=== PATIENT | male | born 2005 | race Caucasian/White ===

== ENCOUNTER 2024-06-21 11:40 | Inpatient (IN) | payer MEDICAID ==
[~2024-06-21] VITALS: Ht 185.4 cm; Wt 134.3 kg
[~2024-06-21 11:40] MED LIST: NOCURR
[2024-06-21] MEDS ORDERED: LEVE-71 PO (12:05)
[2024-06-21] MEDS ORDERED: ARIP10TA38 PO (12:05)
[2024-06-21] MEDS ORDERED: HALO2ORA11 PO (12:05)
[2024-06-21] MEDS ORDERED: OLAN10TA74 PO (12:05)
[2024-06-21] MEDS ORDERED: FLUO-418 PO (12:05)
[2024-06-21] MEDS ORDERED: ZOLPIDEM TARTRATE 10 MG TABLET PO PRN (22:00)
[2024-06-21] MEDS ORDERED: LORazepam 1 MG TABLET PO PRN (22:00)
[2024-06-21 23:14] VITALS: BP 135/86; PULSE 82; RESP 16; TEMP 98.2; O2SAT 98
[2024-06-22 07:59] LABS: BASOPHILS % (AUTO) 0.7 % (0.0-2.0); EOSINOPHILS % (AUTO) 2.6 % (1.0-6.0); HEMATOCRIT 43.8 % (41-53); HEMOGLOBIN 14.5 g/dL (13.5-17.5); LYMPHOCYTES # (AUTO) 2.5 K/uL (1.0-4.8); LYMPHOCYTES % (AUTO) 38.6 % (22.0-44.0); MEAN CORPUSCULAR HEMOGLOBIN 28.6 pg (26.0-34.0); MEAN CORPUSCULAR HGB CONC 33.1 G/dL (31.0-37.0); MEAN CORPUSCULAR VOLUME 87 fL (80-100); MONOCYTES # (AUTO) 0.5 K/uL (0.1-1.0); MONOCYTES % (AUTO) 7.3 % (2.0-9.0); NEUTROPHILS # (AUTO) 3.3 K/uL (1.8-7.7); NEUTROPHILS % (AUTO) 50.8 % (40.0-70.0); PLATELET COUNT (AUTO) 290 K/uL (150-450); RED BLOOD CELL COUNT(AUTO) 5.05 MIL/uL (4.50-5.90); RED CELL DISTRIBUTION WIDTH 13.8 % (11.5-14.5); WHITE BLOOD COUNT (AUTO) 6.6 K/uL (4.5-11.0)
[2024-06-22] MEDS ORDERED: IBUPROFEN 400 MG TABLET PO PRN (08:00)
[2024-06-22] MEDS ORDERED: DOCUSATE SODIUM 100 MG CAPSULE PO PRN (08:00)
[2024-06-22] MEDS ORDERED: ALBUTEROL SULFATE HFA 90 MCG/PUFF 8 GM INHALER IH PRN (08:00)
[2024-06-22] MEDS ORDERED: MAGNESIUM HYDROXIDE SUSPENSION 30 ML UDCUP PO PRN (08:00)
[2024-06-22] MEDS ORDERED: ACETAMINOPHEN 325 MG TABLET PO PRN (08:00)
[2024-06-22] MEDS ORDERED: GuaiFENesin/D-METHORPHAN [SUGAR-FREE] 200-20MG/10 ML SYRUP UDCUP PO PRN (08:00)
[2024-06-22] MEDS ORDERED: NICOTINE 14 MG/24 HOUR PATCH TD PRN (08:00)
[2024-06-22] MEDS ORDERED: PETROLATUM,WHITE 28 GM JELLY TP PRN (08:00)
[2024-06-22] MEDS ORDERED: LOPERAMIDE HCL 2 MG CAPSULE PO PRN (08:00)
[2024-06-22] MEDS ORDERED: MAG HYDROX/ALUMINUM HYD/SIMETH ES 30 ML SUSPENSION UDCUP PO PRN (08:00)
[2024-06-22] MEDS ORDERED: CloNIDine HCL 0.1 MG TABLET PO PRN (08:00)
[2024-06-22 08:21] LABS: ALANINE AMINOTRANSFERASE 82 U/L (12-78); ALBUMIN 3.2 g/dL (3.4-5.0); ALKALINE PHOSPHATASE 93 U/L (46-116); ANION GAP 5 mmol/L (8-16); ASPARTATE AMINOTRANSFERASE 45 U/L (15-37); BILIRUBIN,TOTAL 0.4 mg/dL (0.1-1.0); CALCIUM, TOTAL 8.4 mg/dL (8.8-10.5); CARBON DIOXIDE 29 mmol/L (22-29); CHLORIDE 103 mmol/L (98-107); CHOL/HDL RATIO 4.1 (4.2-7.3); CHOLESTEROL 170 mg/dL (131-200); CREATININE 0.86 mg/dL (0.60-1.30); FREE T4 (FREE THYROXINE) 0.91 ng/dL (0.76-1.46); GLOMERULAR FILTR. RATE CALC > 60 mL/min (>60); GLUCOSE,RANDOM 88 mg/dL (70-110); HDL CHOLESTEROL 41 mg/dL (40-60); LDL CHOL (CALC.) 87 mg/dL (0-130); POTASSIUM 3.9 mmol/L (3.5-5.1); SODIUM SERUM 137 mmol/L (136-145); THYROID STIMULATING HORMONE 1.74 uIU/mL (0.36-3.74); TOTAL PROTEIN, SERUM 6.9 g/dL (6.4-8.2); TRIGLYCERIDES 208 mg/dL (15-150); UREA NITROGEN, BLOOD 15 mg/dL (7-18)
[2024-06-22 09:53] VITALS: BP 140/86; PULSE 86; RESP 18; TEMP 98; O2SAT 96
[2024-06-22] MEDS: HALOPERIDOL 10 MG TABLET PO SCH (11:31)
[2024-06-22] MEDS: ARIPiprazole 10 MG TABLET PO SCH (11:31)
[2024-06-22] MEDS: FLUoxetine HCL 20 MG CAPSULE PO SCH (15:40)
[2024-06-22] MEDS: OLANZapine 10 MG TABLET PO SCH (19:57)
[2024-06-22 20:54] VITALS: BP 143/92; PULSE 124; RESP 18; TEMP 97; O2SAT 98
[2024-06-23 08:36] VITALS: BP 148/96; PULSE 115; RESP 18; TEMP 98.9; O2SAT 92
[2024-06-23 09:32] LABS: APPEARANCE,URINE CLEAR (CLEAR); BILIRUBIN,URINE NEGATIVE (NEGATIVE); COLOR,URINE COLORLESS (YELLOW); GLUCOSE, URINE (UA) NEGATIVE (NEGATIVE); KETONES,URINE NEGATIVE (NEGATIVE); LEUKOCYTE ESTERASE ,URINE NEGATIVE (NEGATIVE); NITRATE,URINE NEGATIVE (NEGATIVE); OCCULT BLOOD,URINE NEGATIVE (NEGATIVE); PROTEIN,URINE NEGATIVE (NEGATIVE); SPECIFIC GRAVITIY, URINE 1.009 (1.003-1.030); UROBILINOGEN,URINE <=1.0 mg/dL (<=1.0)
[2024-06-23 09:50] LABS: AMPHET/METH SCREEN,URINE NEGATIVE (NEGATIVE); BARBITURATE SCREEN, URINE NEGATIVE (NEGATIVE); BENZODIAZEPINES SCREEN,URINE NEGATIVE (NEGATIVE); CANNABINOID SCREEN,URINE NEGATIVE (NEGATIVE); COCAINE SCREEN,URINE NEGATIVE (NEGATIVE); METHADONE SCREEN, URINE NEGATIVE (NEGATIVE); OPIATE SCREEN,URINE NEGATIVE (NEGATIVE); PHENCYCLIDINE SCREEN,URINE NEGATIVE (NEGATIVE)
[2024-06-23 09:51] LABS: ALCOHOL, URINE DRUG SCREEN NEGATIVE (NEGATIVE)
[2024-06-23 10:10] VITALS: BP 150/89; PULSE 122; RESP 18; TEMP 97.8; O2SAT 97
[2024-06-23] MEDS: ONDANSETRON HCL 4 MG TABLET PO PRN (10:20)
[2024-06-23] MEDS: LevETIRAcetam 250 MG TABLET PO SCH (12:51)
[2024-06-23 20:50] VITALS: BP 130/79; PULSE 77; RESP 18; TEMP 97.3; O2SAT 95
[2024-06-24 08:16] VITALS: BP 141/73; PULSE 89; RESP 17; TEMP 98; O2SAT 97
[2024-06-24 20:00] VITALS: BP 126/69; PULSE 77; RESP 16; TEMP 97.2; O2SAT 97
[2024-06-25 08:11] VITALS: BP 143/92; PULSE 82; RESP 17; TEMP 98; O2SAT 97
[2024-06-25] MEDS ORDERED: FLUO-418 PO (11:21)
[2024-06-25] MEDS ORDERED: HALO10TA21 PO (11:21)
[2024-06-25] MEDS ORDERED: LEVE250T81 PO (11:21)
[2024-06-25] MEDS ORDERED: ARIP10TA38 PO (11:21)
[2024-06-25] MEDS ORDERED: OLAN10TA74 PO (11:21)
== END 2024-06-25 14:30 | disposition home or self-care (01) | DRG 750 ==
LOC: B2S 21:50
PROVIDERS: ADMIT Psychiatry & Neurology Psychiatry; ATTEND Psychiatry & Neurology Psychiatry
PROC: GZHZZZZ Group Psychotherapy (ICD-10-PCS; principal; 2024-06-22)
PROC: GZ56ZZZ Individual Psychotherapy, Supportive (ICD-10-PCS; 2024-06-22)
DX: F25.0 Schizoaffective disorder, bipolar type (principal); G40.909 Epilepsy, unspecified, not intractable, without status epilepticus; F84.0 Autistic disorder; Z79.899 Other long term (current) drug therapy; R03.0 Elevated blood-pressure reading, without diagnosis of hypertension; G47.00 Insomnia, unspecified
CPT/HCPCS: 80053; 80061; 80307; 81003; 83036; 84439; 84443; 85025; G0482; Q0162